=== PATIENT | female | born 1975 | race Caucasian/White ===

== ENCOUNTER 2025-01-12 20:03 | Emergency (ER) | payer OTHER, SELFPAY ==
--- NOTE | ~2025-01-12 | XR_ITS ---
CLINICAL HISTORY: pain after injury at work 3 view right shoulder Comparison: None Findings: Bones intact. No dislocations. Very mild arthritic changes. No erosions. No radiopaque foreign body. IMPRESSION: No acute fracture or dislocation. This document has been electronically signed by: Xiomara Vallejo DO on 01/12/2025 21:33:22
--- NOTE | ~2025-01-12 | XR_ITS ---
CLINICAL HISTORY: pain x months 3 view right elbow Comparison: None Findings: No acute fractures. Normal alignment. No significant loss of joint space, osteophytes, or erosions. No joint effusion. No radiopaque foreign body. IMPRESSION: No acute fracture or dislocation. This document has been electronically signed by: Xiomara Vallejo DO on 01/12/2025 21:28:42
--- NOTE | ~2025-01-12 | XR_ITS ---
CLINICAL HISTORY: pain after work injury 3 view left shoulder Comparison: None Findings: Bones intact. No dislocations. Mild arthritic changes. No erosions. No radiopaque foreign body. IMPRESSION: No acute fracture or dislocation. This document has been electronically signed by: Xiomara Vallejo DO on 01/12/2025 21:37:16
[2025-01-12 20:42] VITALS: BP 116/76; PULSE 78; RESP 18; TEMP 36.4; O2SAT 99; BMI 39.7
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
[2025-01-12 22:23] VITALS: BP 118/78; PULSE 76; RESP 19; TEMP 36.6; O2SAT 99
--- NOTE | 2025-01-13 01:31 | PC.NURSE ---
provider into assess pt, pt verbalized under standing, no sign of distress upon discharge, pt ambulated with a steady gait.
[2025-01-13 01:32] VITALS: BP 118/78; PULSE 76; RESP 19; TEMP 36.6; O2SAT 99
== END 2025-01-13 01:33 | disposition home or self-care (01) ==
PROVIDERS: Emergency Provider Internal Medicine; PCP Internal Medicine
DX: M75.101 Unspecified rotator cuff tear or rupture of right shoulder, not specified as traumatic (principal); M79.18 Myalgia, other site; M25.521 Pain in right elbow
CPT/HCPCS: 73030; 73070; 99283; 99284

== ENCOUNTER → 2025-01-12 20:44 | Outpatient (BNV) | payer OTHER, SELFPAY | PROVIDERS: Visit Provider Radiology Diagnostic Radiology | DX: M25.521 Pain in right elbow (principal); M25.511 Pain in right shoulder; M25.512 Pain in left shoulder; Z04.2 Encounter for examination and observation following work accident | CPT/HCPCS: 73030; 73070 ==